=== PATIENT | female | born 1945 | race Two or more races ===

== ENCOUNTER 2018-10-24 06:50 | Emergency (ER) | payer OTHER ==
[~2018-10-24] VITALS: Ht 157.5 cm; Wt 89.4 kg
[~2018-10-24 06:50] MED LIST: GLIPIZIDE10 MG
[2018-10-24] MEDS ORDERED: GLIPIZIDE5 MG (07:18)
== END 2018-10-24 11:02 | disposition home or self-care (01) ==
LOC: ER 06:50
DX: M25.511 Pain in right shoulder (principal); S46.811S Strain of other muscles, fascia and tendons at shoulder and upper arm level, right arm, sequela; X50.0XXS Overexertion from strenuous movement or load, sequela

== ENCOUNTER 2023-11-01 02:52 | Emergency (ER) | payer OTHER ==
[~2023-11-01] VITALS: Ht 165.1 cm; Wt 87.1 kg
[~2023-11-01 02:52] MED LIST changes: +GLIPIZIDE5 MG
[2023-11-01] MEDS ORDERED: ANTIVERT25 M2 (03:09)
[2023-11-01] MEDS ORDERED: KETOROLAC TROMETHAMINE 60 MG VIAL IM STA (03:57)
== END 2023-11-01 05:50 ==
LOC: ER 02:54
DX: S16.1XXA Strain of muscle, fascia and tendon at neck level, initial encounter (principal); S09.90XA Unspecified injury of head, initial encounter; W06.XXXA Fall from bed, initial encounter; Y93.84 Activity, sleeping; Y92.89 Other specified places as the place of occurrence of the external cause; Y99.8 Other external cause status; E11.9 Type 2 diabetes mellitus without complications
CPT/HCPCS: 70450; 72040; 96372; 99284; J1885